=== PATIENT | male | born 1975 | race Caucasian/White ===

== ENCOUNTER 2016-12-02 10:15 | Emergency (ER) | payer MEDICAID ==
[2016-12-02 10:23] VITALS: O2SAT 100; BMI 25.9
[2016-12-02] MEDS ORDERED: Oxycodone/Acetaminophen 5/325 mg Tab PO STA (10:38)
[2016-12-02] MEDS ORDERED: Silver Sulfadiazine 1% CREAM (50 gm) TOP STA (10:38)
[2016-12-02] MEDS ORDERED: Silver Sulfadiazine 1% CREAM (50 gm) ONE (10:46)
[2016-12-02] MEDS ORDERED: Oxycodone/Acetaminophen 5/325 mg Tab ONE (10:46)
--- NOTE | 2016-12-02 10:49 | ED PDOC ---
Upper Extremity Pain/Injury Time Seen by Provider: 12/02/16 10:30 Chief Complaint (Nursing): Upper Extremity Problem/Injury Chief Complaint (Provider): right hand burn History Per: Patient History/Exam Limitations: no limitations Onset/Duration Of Symptoms: Days (x 1) Additional Complaint(s): Skip Tesfaye is a 41 year old male, with a previous medical history of HIV, who presents to the ED for the evaluation of a burn he sustained to the dorsum of his right hand yesterday while he was cooking with grease. Patient reports pain to the area associated with swelling but denies any numbness or tingling. He states last viral load was undetectable. PMD: none provided Past Medical History Reviewed: Historical Data, Nursing Documentation, Vital Signs Vital Signs: Last Vital Signs Temp 98 F 12/02/16 10:22 Pulse 73 12/02/16 10:22 Resp BP 155/102 H 12/02/16 10:22 Pulse Ox 100 12/02/16 10:22 - Medical History PMH: HIV - Family History Family History: States: Unknown Family Hx - Home Medications Home Medications: Ambulatory Orders Medication Instructions Recorded Naproxen [Naprosyn] 500 mg PO BID PRN #14 tablet 12/02/16 Silver Sulfadiazine 1% 50 gm 50 applic TOP BID #1 jar 12/02/16 [Silvadene 1% 50 gm] oxyCODONE/Acetaminophen [Percocet 1 ea PO Q6 PRN #10 tab 12/02/16 5/325 mg Tab] - Allergies Allergies/Adverse Reactions: Allergies Allergy/AdvReac Type Severity Reaction Status Date / Time No Known Allergies Allergy Verified 12/02/16 10:38 Review of Systems ROS Statement: Except As Marked, All Systems Reviewed And Found Negative Musculoskeletal: Positive for: Hand Pain (right ) Neurological: Negative for: Numbness, Other (tingling ) Physical Exam - Reviewed Nursing Documentation Reviewed: Yes Vital Signs Reviewed: Yes - Physical Exam Appears: Positive for: Well, Non-toxic, No Acute Distress Extremity: Positive for: Normal ROM (of wrist and digits of right hand ), Other (second degree burn to the dorsum of the right hand. Blistering noted to the proximal wrist and dosrum of the right hand. ) Neurologic/Psych: Positive for: Alert, Oriented - ECG O2 Sat by Pulse Oximetry: 100 (RA) Pulse Ox Interpretation: Normal Medical Decision Making Medical Decision Making: Initial Impression: Burn Initial Plan: * percocet 1 tab PO * Tetanus vaccine IM * silvadene to area, wound care * reevaluation Patient is stable and ready for discharge. Patient given instructions on burn management along with a referral for followup. Scribe Attestation: Documented by Liana Waddell, acting as a scribe for Kalin Colby D.O. Provider Scribe Attestation: All medical record entries made by the Scribe were at my direction and personally dictated by me. I have reviewed the chart and agree that the record accurately reflects my personal performance of the history, physical exam, medical decision making, and the department course for this patient. I have also personally directed, reviewed, and agree with the discharge instructions and disposition. Disposition - Clinical Impression Clinical Impression: Second degree burn of hand - Patient ED Disposition Is Patient to be Admitted: No Counseled Patient/Family Regarding: Studies Performed, Diagnosis, Need For Followup, Rx Given - Disposition Referrals: [facility] [Outside] Sivakumar Yen MD [Medical Doctor] - Disposition: Routine/Home Disposition Time: 11:45 Condition: STABLE Additional Instructions: See burn specialist or hand surgeon for re-evaluation of burn in 48-72hours. Return to ER for any worse pain, fever, redness, swelling or any concern. You can see doctor on [employer] on smartphone- see instructions for details and phone number You can also call [facility] (local burn center) for evaluation- and ask for Burn clinic. Use antibiotic cream daily for 7 days. Avoid sun exposure. Received tetanus/diptheria booster immunization- it is effective for [address] or operate machinery while taking percocet as may cause drowsiness. This medication can be addictive, use minimally as possible for pain control. Prescriptions: Naproxen [Naprosyn] 500 mg PO BID PRN #14 tablet PRN Reason: Pain, Moderate (4-7) oxyCODONE/Acetaminophen [Percocet 5/325 mg Tab] 1 ea PO Q6 PRN #10 tab PRN Reason: Pain, Severe (8-10) Silver Sulfadiazine 1% 50 gm [Silvadene 1% 50 gm] 50 applic TOP BID #1 jar Instructions: Diphtheria/Tetanus Vaccine (By injection), Antibacterial Combination (On the skin), Second Degree Burn (ED) Forms: [facility] ([place]ic)
[2016-12-02 12:28] VITALS: BP 132/85; PULSE 78; RESP 14; TEMP 98
== END 2016-12-02 12:28 | disposition home or self-care (01) ==
LOC: H.ER 10:15
DX: T23.209A Burn of second degree of unspecified hand, unspecified site, initial encounter (principal); Y92.89 Other specified places as the place of occurrence of the external cause